=== PATIENT | female | born 1985 | race Caucasian/White ===

== ENCOUNTER 2023-06-08 23:11 | Emergency (ER) | payer MEDICAID ==
[~2023-06-08] VITALS: Ht 170.2 cm; Wt 86.0 kg
[2023-06-08 23:29] VITALS: O2SAT 98
[2023-06-09] MEDS ORDERED: SODIUM CHLORIDE 0.9% 1,000 ML IV ONE (00:30)
[2023-06-09] MEDS ORDERED: KETOROLAC 30MG/ML VIAL IV ONE (00:30)
[2023-06-09 02:06] LABS: BASOPHILS % 0.1 % (0.0-2.0); HEMATOCRIT. 38.9 % (36.0-48.0); HEMOGLOBIN. 12.9 g/dL (12.0-16.0); LYMPHOCYTES % 8.6 % (20.0-50.0); MEAN CORPUSCULAR HEMOGLOBIN 28.1 pg (28.0-32.0); MEAN CORPUSCULAR HGB CONC 33.2 g/dL (31.0-37.0); MEAN CORPUSCULAR VOLUME 84.8 fL (81.0-99.0); NEUTROPHILS % 88.3 % (40.0-76.0); PLATELET 427 x1000/uL (130-400); RED BLOOD CELL COUNT 4.59 mill/uL (4.2-5.4); RED CELL DISTRIBUTION WIDTH 13.5 % (11.6-14.6); WHITE BLOOD COUNT 10.7 x1000/uL (4.5-11.0)
[2023-06-09 02:46] LABS: ALANINE AMINOTRANSFERASE 34 IU/L (10-49); ALBUMIN 4.5 g/dL (3.2-4.8); ASPARTATE AMINOTRANSFERASE 23 IU/L (<34); BILIRUBIN TOTAL 0.4 mg/dL (0.1-1.0); CALCIUM 9.1 mg/dL (8.7-10.4); CARBON DIOXIDE 24 mEq/L (21-32); CHLORIDE 108 mEq/L (98-107); CREATININE 0.8 mg/dL (0.6-1.0); GLUCOSE 119 mg/dL (70-105); POTASSIUM 3.9 mEq/L (3.5-5.1); PROTEIN TOTAL 7.7 g/dL (6.0-8.3); SODIUM 139 mEq/L (136-145); UREA NITROGEN BLOOD 13 mg/dL (9-23)
[2023-06-09 02:49] LABS: B-HCG QUANTITATIVE 1 mIU/mL (<3)
[2023-06-09 03:36] LABS: CLARITY URINE CLOUDY (CLEAR); COLOR URINE RED (YELLOW); SPECIFIC GRAVITY URINE 1.025 (1.005-1.030)
[2023-06-09 03:37] LABS: GLUCOSE URINE NEGATIVE (NEGATIVE); KETONES URINE 1+ (NEGATIVE); PH URINE 6.5 (4.5-8.0); PROTEIN URINE 2+ (NEGATIVE)
[2023-06-09 03:38] LABS: NITRITE URINE NEGATIVE (NEGATIVE); OCCULT BLOOD URINE 3+ (NEGATIVE)
[2023-06-09 03:39] LABS: LEUKOCYTE ESTERASE URINE NEGATIVE (NEGATIVE)
[2023-06-09] MEDS ORDERED: TAMS-11 MT (05:39)
[2023-06-09] MEDS ORDERED: IBUP-2029 MT (05:39)
[2023-06-09 05:58] LABS: RBC URINE TNTC /hpf (0-2); SQUAMOUS EPITHELIAL CELL URINE FEW /lpf (RARE/1+)
[2023-06-09 06:01] LABS: WBC URINE 0-2 /hpf (0-2)
[2023-06-09 06:02] LABS: BACTERIA URINE NONE SEEN
[2023-06-09] MEDS ORDERED: KETOROLAC 30MG/ML VIAL IV NR (06:30)
[2023-06-09 09:38] VITALS: BP 110/63; PULSE 90; RESP 19; TEMP 98.2
== END 2023-06-09 09:52 | disposition home or self-care (01) ==
LOC: ER 23:11
DX: N20.0 Calculus of kidney (principal); Z88.0 Allergy status to penicillin; R10.2 Pelvic and perineal pain
CPT/HCPCS: 99285; 80053; 81003; 81025; 84702; 85025; 86850; 86900; 86901; 36415; 74176; 76830; 76856; 93005; 96361; 96374; J1885; J7030; Z7610 ×2